=== PATIENT | male | born 1980 | race Caucasian/White ===

== ENCOUNTER 2024-01-02 00:11 | Emergency (ER) | payer OTHER ==
--- NOTE | 2024-01-02 00:31 | ED ---
General Adult HPI - General Stated complaint: SIMONA Time Seen by Provider: 01/02/24 00:31 Source: patient, family Mode of arrival: ambulatory Limitations: no limitations - History of Present Illness Initial comments: 43-year-old male presenting with chief complaint of cough congestion and postnasal drip. Patient also states that he has been having difficulty breathing exclusively when he lays down at night. This has been ongoing since August. He recently saw urgent care for this issue and was started on antibiotics and steroids. His symptoms improved but when he stopped the medication his symptoms came back. He is a current every day smoker. No chest pain. No fevers. No sinus pain. Does not see a PCP. - Related Data Previous Rx's Medication Instructions Recorded Albuterol Sulfate [Albuterol 2 puff PO Q6H PRN #8.5 gm 01/02/24 Sulfate Hfa] Allergies Allergy/AdvReac Type Severity Reaction Status Date / Time diphenhydramine AdvReac Itching Verified 01/02/24 00:36 [From David] Review of Systems ROS Statement: Those systems with pertinent positive or pertinent negative responses have been documented in the HPI. ROS Other: All systems not noted in ROS Statement are negative. General Exam - General Exam Comments Initial Comments: Visual Physical Exam Vital signs reviewed General: Well-appearing, nontoxic, no acute distress. Head: Normocephalic, atraumatic Eyes: PERRLA, EOMI ENT: Airway patent Chest: Nonlabored breathing Skin: No visual rash, normal skin tone Neuro: Alert and oriented 3 Musculoskeletal: No gross abnormalities General appearance: alert, in no apparent distress Head exam: Present: atraumatic, normocephalic, normal inspection Eye exam: Present: normal appearance, EOMI ENT exam: Present: normal exam, normal oropharynx, mucous membranes moist Neck exam: Present: normal inspection. Absent: meningismus Respiratory exam: Present: normal lung sounds bilaterally. Absent: respiratory distress, wheezes, rales, rhonchi, stridor Cardiovascular Exam: Present: regular rate, normal rhythm, normal heart sounds. Absent: systolic murmur, diastolic murmur, rubs, gallop, clicks Neurological exam: Present: alert, oriented X3 Psychiatric exam: Present: normal affect, normal mood Skin exam: Present: warm, dry Course Vital Signs 01/02/24 01/02/24 01/02/24 00:28 01:48 03:50 Temperature 98.4 F 98.1 F Pulse Rate 98 82 Respiratory 18 18 18 Rate Blood Pressure 169/104 135/85 O2 Sat by Pulse 97 98 Oximetry Medical Decision Making - Medical Decision Making Was pt. sent in by a medical professional or institution (, [facility], [facility], urgent care, hospital, or care home...) When possible be specific @ -No Did you speak to anyone other than the patient for history (EMS, parent, family, police, friend...)? What history was obtained from this source @ -No Did you review nursing and triage notes (agree or disagree)? Why? @ -I reviewed and agree with nursing and triage notes Were old charts reviewed (outside hosp., previous admission, EMS record, old EKG, old radiological studies, urgent care reports/EKG's, care home records)? Report findings @ -No old charts were reviewed Differential Diagnosis (chest pain, altered mental status, abdominal pain women, abdominal pain men, vaginal bleeding, weakness, fever, dyspnea, syncope, headache, dizziness, GI bleed, back pain, seizure, CVA, palpatations, mental health, musculoskeletal)? @ -MDM Differential Dyspnea: Coronary syndrome, arrhythmia, tamponade, asthma, COPD, pulmonary embolism, pneumonia, pneumothorax, pulmonary effusion, anaphylaxis, diabetic ketoacidosis, flailed chest, pulmonary contusion, diaphragmatic rupture, anemia, neuromuscular this is not meant to be an all-inclusive list. EKG interpreted by me (3pts min.). @ -As above X-rays interpreted by me (1pt min.). @ -Chest x-ray shows no acute process CT interpreted by me (1pt min.). @ -None done U/S interpreted by me (1pt. min.). @ -None done What testing was considered but not performed or refused? (CT, X-rays, U/S, labs)? Why? @ -None What meds were considered but not given or refused? Why? @ -None Did you discuss the management of the patient with other professionals (professionals i.e. [facility], [facility], lab, RT, psych nurse, marriage and family social worker, underliner, teacher, front desk officer, business case analyst)? Give summary @ -No Was smoking cessation discussed for >3mins.? @ -I counseled the patient for smoking cessation for greater than 3 minutes Was critical care preformed (if so, how long)? @ -No Were there social determinants of health that impacted care today? How? (Homelessness, low income, unemployed, alcoholism, drug addiction, transportation, low edu. Level, literacy, decrease access to med. care, alf, rehab)? @ -No Was there de-escalation of care discussed even if they declined (Discuss DNR or withdrawal of care, Hospice)? DNR status @ -No What co-morbidities impacted this encounter? (DM, HTN, Smoking, COPD, CAD, Cancer, CVA, ARF, Chemo, Hep., AIDS, mental health diagnosis, sleep apnea, morbid obesity)? @ -None Was patient admitted / discharged? Hospital course, mention meds given and route, prescriptions, significant lab abnormalities, going to OR and other pertinent info. @ -43-year-old male presenting with chief complaint of shortness of breath. Also complains of postnasal drip and cough. Current smoker. History and physical examination are conducted. Heart and lungs are clear to auscultation. He is negative for influenza, RSV, COVID. Chest x-ray shows no acute process. Patient is educated on today's findings. Encouraged the patient to quit smoking. Provided with an albuterol inhaler as needed. Also encouraged nasal spray to help with congestion. Patient was feeling anxious and was going to have difficulty sleeping tonight so he was given 1 dose 0.5 mg Ativan. I encouraged to follow-up with the PCP, suggestions provided. Discharged. Follow-up with PCP. Report back to ER with any new or worsening symptoms. Discussed return parameters and answered all questions. Patient conveyed verbal understanding and agreed to the plan. I discussed this case in detail with my attending Dr. Cerrato Undiagnosed new problem with uncertain prognosis? @ -No Drug Therapy requiring intensive monitoring for toxicity (Heparin, Nitro, Insulin, Cardizem)? @ -No Were any procedures done? @ -No Diagnosis/symptom? @ -Postnasal drip Acute, or Chronic, or Acute on Chronic? @ -Acute Uncomplicated (without systemic symptoms) or Complicated (systemic symptoms)? @ -Uncomplicated Side effects of treatment? @ -No Exacerbation, Progression, or Severe Exacerbation? @ -No Poses a threat to life or bodily function? How? (Chest pain, [place], [place], pneumonia, PE, COPD, DKA, ARF, appy, cholecystitis, CVA, Diverticulitis, Homicidal, Suicidal, threat to staff... and all critical care pts) @ -No Diagnosis/symptom? @Smoker Acute, or Chronic, or Acute on Chronic? @Chronic Uncomplicated (without systemic symptoms) or Complicated (systemic symptoms)? @Complicated Side effects of treatment? @None Exacerbation, Progression, or Severe Exacerbation] @No Poses a threat to life or bodily function? @Yes long-term threat - Lab Data Lab Results 01/02/24 Range/Units 00:57 Influenza Type A (PCR) Not Detected (Not Detectd) Influenza Type B (PCR) Not Detected (Not Detectd) RSV (PCR) Not Detected (Not Detectd) SARS-CoV-2 (PCR) Not Detected (Not Detectd) Disposition Clinical Impression: Smoker, Post-nasal drip Disposition: HOME SELF-CARE Condition: Good Instructions (If sedation given, give patient instructions): How to Stop Smoking (ED), Postnasal Drip (DC) Additional Instructions: Follow-up with PCP, some suggestions provided. Report back to ER with any new or worsening symptoms. Prescriptions: Albuterol Sulfate [Albuterol Sulfate Hfa] 2 puff PO Q6H PRN #8.5 gm PRN Reason: Shortness Of Breath Is patient prescribed a controlled substance at d/c from ED?: No Referrals: None,Stated [Primary Care Provider] - 1-2 days Ilia Rendon MD [STAFF PHYSICIAN] - 1-2 days [facility] [NON-STAFF] - 1-2 days Fredy Emmanuel MD [STAFF PHYSICIAN] - 1-2 days Time of Disposition: 03:29
[2024-01-02 00:33] VITALS: RESP 18
--- NOTE | 2024-01-02 03:05 | XR ---
EXAM: XR Chest, 2 Views CLINICAL HISTORY: ITS.REASON XR Reason: COUGH TECHNIQUE: Frontal and lateral views of the chest. COMPARISON: No relevant prior studies available. FINDINGS: Lungs: No consolidation or mass. Pleural space: No effusion. Heart: No cardiomegaly. Bones/joints: No acute findings. IMPRESSION: No acute cardiopulmonary process.
[2024-01-02] MEDS: LORazepam 1 MG TAB PO STA (03:42)
[2024-01-02 03:52] VITALS: BP 135/85; PULSE 82; TEMP 98.1
== END 2024-01-02 03:51 | disposition home or self-care (01) ==
LOC: EC 00:11
CPT/HCPCS: 71046; 87636; 99285